=== PATIENT | female | born 1995 | race Caucasian/White ===

== ENCOUNTER 2018-10-19 07:50 | Emergency (ER) | payer BC ==
--- NOTE | 2018-10-19 09:14 | RAD ---
AP ABDOMINAL RADIOGRAPH: 10/19/2018 HISTORY: Left upper quadrant abdominal pain. Constipation. FINDINGS: There is a small to moderate amount of retained fecal material seen throughout the colon. No dilated loops of small bowel are seen. Multiple punctate increased density foci overly the pelvis, which ma y be related to ingested material within loops of bowel. Phleboliths overly the pelvis. The osseous structures are intact. IMPRESSION: 1. Multiple punctate, calcific appearing densities overlying the pelvis. Findings are probably rela [place] to ingested material within bowel, but follow-up evaluation is recommended to ensure resolution. 2. Constipation. 3. No dilated loops of small bowel are seen. CODE T POS: JEAN-PAUL
[2018-10-19 09:20] LABS: Bilirubin Negative (Negative); Blood, Urine Trace (Negative); Clarity CLEAR (Clear); Glucose, Urine (Dipstick) Negative (Negative); Leukocyte Small (Negative); Nitrite Negative (Negative); Protein, Urine (Dipstick) Negative (Neg-Trace); Specific Gravity, Urine 1.009 (1.002-1.036); Urobilinogen 0.2 mg/dL (0.2-1.0)
[2018-10-19 09:22] LABS: Bacteria/HPF 4+ HPF (None Seen); Hyaline Casts/LPF 0-3 HYALINE CAST LPF (0-3 Hyaline); Pathc Cast-AUWi Flag 0.14 (0-2.49); RBC/HPF 0-3 HPF (0-3); Squamous Epithelial 0-3 HPF (0-3)
[2018-10-19 09:26] LABS: Pregnancy Test - Urine (BHCG) Negative (Negative); Pregu Control Background? CLEAR/WHITE (CLR/WHITE); Pregu Control Bar Appear? YES (CONTROL BAR); Specific Gravity 1.009 (1.002-1.036)
== END 2018-10-19 10:05 | disposition home or self-care (01) ==
LOC: ERS 07:50
DX: K59.00 Constipation, unspecified (principal); N39.0 Urinary tract infection, site not specified; F32.9 Major depressive disorder, single episode, unspecified; Z79.899 Other long term (current) drug therapy
CPT/HCPCS: 74018; 81003; 81015; 81025